=== PATIENT | female | born 1955 | race Caucasian/White ===

== ENCOUNTER 2016-04-22 17:51 | Inpatient (IN) | payer OTHER ==
[~2016-04-22] VITALS: Ht 165.1 cm; Wt 58.8 kg
[~2016-04-22 17:51] MED LIST: ATARAX,VISTARIL50 MG PO; BENTYL10 MG PO; BENZOTROPINE PO; BENZTROPINE MESY2 MG PO; CARAFATE1 GM PO; CLONAZEPAM1 MG PO; COMPAZINE10 MG PO; COREG12.5 M1 PO; COREG25 M1 PO; DICYCLOMINE HCL20 MG PO; DIFLUCAN150 MG PO; DULCOLAX5 MG PO; EFFEXOR XR75 MG PO; FLEET ENEMA-AD118 ML PR; Flora-Q,Risaquad PO; HYDROXYZINE HCL50 MG PO; LANSOPRAZOLE15 MG PO; LEVOTHROID,S0.137 MG PO; LEVOXYL112 MCG PO; LEVOXYL125 MCG PO; LEVOXYL137 MCG PO; MACROBID100 MG PO; MIRALAX17 GM PO; MORPHINE SULFAT30 M1 PO; MS CONTIN,ORAMO30 MG PO; MS CONTIN,ORAMO60 MG PO; MS Contin,Oramorph S PO; NEXIUM20 MG PO; PRILOSEC20 MG PO; PRILOSEC40 MG PO; PROCHLORPERAZIN10 MG PO; PYRIDIUM100 MG PO; STOOL SOFTENER100 M1 PO; SUBOXONE 8 MG-1 EACH SL; SUCRALFATE1 GM PO; SYNTHROID125 MCG PO; TIZANIDINE HCL4 MG PO; VIVARIN200 MG PO; ZANAFLEX2 M1 PO; ZANAFLEX4 M1 PO; ZANAFLEX4 MG PO; ZOFRAN ODT4 MG PO; ZOFRAN ODT8 MG PO
[2016-04-22 19:07] LABS: HEMATOCRIT 36.3 % (36.0-46.0); MCH 25.5 PG (29.0-34.0); MCHC 31.1 G/DL (30.0-36.0); MCV 81.8 FL (83-99); PLATELET COUNT 389 K/uL (156-360); RBC DIS.WIDTH-CV 14.6 % (11.8-14.6); RBC DIS.WIDTH-SD 43.1 % (39-53); RED BLOOD COUNT 4.44 M/uL (3.80-5.20); WHITE BLOOD COUNT 8.8 K/uL (4.1-10.2)
[2016-04-22 19:16] LABS: CHLORIDE 109 mEq/L (99-109); POTASSIUM 3.8 mEq/L (3.7-5.4); SODIUM 139 mEq/L (136-147)
[2016-04-22 19:18] LABS: GLUCOSE 128 mg/dL (70-99)
[2016-04-22 19:19] LABS: ANION GAP 9 MEQ/L (2-14)
[2016-04-22 19:20] LABS: TOTAL BILIRUBIN 0.4 mg/dL (0.0-1.0)
[2016-04-22 19:21] LABS: SERUM ETHYL ALCOHOL < 10 mg/dL
[2016-04-22 19:22] LABS: ALKALINE PHOSPHATASE 66 IU/L (3-129); GFR ESTIMATE (CALCULATED) 49 mL/min/
[2016-04-22 19:23] LABS: UREA NITROGEN (BUN) 13 mg/dL (9-23)
[2016-04-22] MEDS ORDERED: MECLIZINE HCL25 MG PO (20:38)
[2016-04-22] MEDS ORDERED: AUGMENTIN500 MG PO (20:57)
[2016-04-22] MEDS ORDERED: CENTRUM SILVER1 EAC3 PO (20:59)
[2016-04-22] MEDS ORDERED: SSD25GM TP (20:59)
[2016-04-22] MEDS ORDERED: B COMPLETE1 EACH PO (21:02)
[2016-04-22 21:23] LABS: ADD MIUA? NO; BILIRUBIN NEGATIVE; BLOOD NEGATIVE; COLOR YELLOW ((YELLOW)); GLUCOSE (STRIP) NEGATIVE; KETONES NEGATIVE; LEUKOCYTES NEGATIVE; NITRITE NEGATIVE; PROTEIN (STRIP) NEGATIVE; UROBILINOGEN 0.2 MG/DL (0.2-1.0)
[2016-04-22 21:30] LABS: AMPHETAMINE NEGATIVE (500 ng/mL); BARBITURATES NEGATIVE (200 ng/mL); BENZODIAZEPINES NEGATIVE (150 ng/mL); COCAINE NEGATIVE (150 ng/mL); INTERNAL CONTROLS VALID? YES; METHADONE NEGATIVE (200 ng/mL); METHAMPHETAMINE NEGATIVE (500 ng/mL); OPIATES (MORPHINE) PRESUMPTIVE POSITIVE (100 ng/mL); OXYCODONE NEGATIVE (100 ng/mL); PHENCYCLIDINE NEGATIVE (25 ng/mL); PROPOXYPHENE NEGATIVE (300 ng/mL); THC CANNABINOIDS NEGATIVE (50 ng/mL); TRICYCLIC ANTIDEPRESSANTS NEGATIVE (300 ng/mL)
[2016-04-22 21:31] LABS: ADD MEDTOX COMMENT Y
[2016-04-22 21:42] VITALS: BP 171/73
[2016-04-22 22:04] VITALS: BP 171/73
[2016-04-23 07:44] VITALS: BP 111/56
[2016-04-23 10:02] VITALS: BP 137/63; BP 140/66
[2016-04-23 10:03] VITALS: BP 123/59
[2016-04-23 15:32] VITALS: BP 121/58
[2016-04-23 15:34] VITALS: BP 135/64; BP 153/69
[2016-04-24 07:50] VITALS: BP 165/73
[2016-04-24 07:52] VITALS: BP 145/71; BP 160/53
[2016-04-24 15:55] VITALS: BP 153/70
[2016-04-24 15:56] VITALS: BP 156/70
[2016-04-24 15:57] VITALS: BP 131/73
[2016-04-25 07:58] VITALS: BP 174/77
[2016-04-25 07:59] VITALS: BP 163/79
[2016-04-25 08:00] VITALS: BP 161/77
[2016-04-25 15:34] VITALS: BP 154/67
[2016-04-26 07:53] VITALS: BP 142/65
[2016-04-26 16:10] VITALS: BP 148/65
[2016-04-27 07:59] VITALS: BP 145/63
[2016-04-27 15:25] VITALS: BP 133/66
[2016-04-28 08:18] VITALS: BP 127/61
[2016-04-28 15:18] VITALS: BP 135/63
[2016-04-29 09:30] VITALS: BP 150/75
[2016-04-29 15:53] VITALS: BP 133/63
[2016-04-30 07:59] VITALS: BP 154/71
[2016-04-30 15:23] VITALS: BP 145/65
[2016-05-01 08:05] VITALS: BP 111/69
[2016-05-01 09:50] VITALS: BP 104/51
[2016-05-01 15:33] VITALS: BP 99/53
[2016-05-02 07:38] VITALS: BP 115/57
[2016-05-02 16:01] VITALS: BP 103/51
[2016-05-03 07:52] VITALS: BP 149/70
[2016-05-03] MEDS ORDERED: QUETIAPINE FUMA25 MG PO (09:28)
[2016-05-03] MEDS ORDERED: QUETIAPINE FUM100 MG PO (09:28)
== END 2016-05-03 13:22 | disposition home or self-care (01) | DRG 876 ==
LOC: EME 17:51 → 1WEST 19:49 → EDOF 19:49 → 1WEST 21:38
PROVIDERS: Emergency Medicine
PROC: 0JB90ZZ Excision of Buttock Subcutaneous Tissue and Fascia, Open Approach (ICD-10-PCS; principal; 2016-04-23)
DX: F32.9 Major depressive disorder, single episode, unspecified (principal); R45.851 Suicidal ideations; F41.9 Anxiety disorder, unspecified; G89.4 Chronic pain syndrome; T21.05XA Burn of unspecified degree of buttock, initial encounter; X16.XXXA Contact with hot heating appliances, radiators and pipes, initial encounter; R42 Dizziness and giddiness; L30.1 Dyshidrosis [pompholyx]; Z98.890 Other specified postprocedural states; Z79.891 Long term (current) use of opiate analgesic
CPT/HCPCS: 70450; 80053; 81003; 84999; 85027; 90839; 97150 GO; 97166 GO; 97530 GP; 99281; 99284; G0480; Q0177

== ENCOUNTER 2017-02-01 11:28 | Emergency (ER) | payer OTHER ==
[~2017-02-01] VITALS: Ht 165.1 cm; Wt 64.4 kg
[~2017-02-01 11:28] MED LIST changes: +AUGMENTIN500 MG PO; +B COMPLETE1 EACH PO; +CENTRUM SILVER1 EAC3 PO; +MECLIZINE HCL25 MG PO; +QUETIAPINE FUM100 MG PO; +QUETIAPINE FUMA25 MG PO; +SSD25GM TP
[2017-02-01 12:54] LABS: BASOPHIL (%) 0.5 % (0-1); BASOPHIL COUNT 0.1 K/uL (0-0.1); EOSINOPHIL (%) 3.4 % (0-5); EOSINOPHIL COUNT 0.4 K/uL (0-0.3); HEMATOCRIT 43.1 % (36.0-46.0); IMMATURE GRANULOCYTE (%) 0.3 % (0.0-0.7); LYMPHOCYTE (%) 18.9 % (15-42); MCH 28.1 PG (29.0-34.0); MCHC 32.5 G/DL (30.0-36.0); MCV 86.5 FL (83-99); MONOCYTE (%) 6.8 % (3-12); MONOCYTE COUNT 0.7 K/uL (0-0.8); NEUTROPHIL (%) 70.1 % (45-76); NEUTROPHIL COUNT 7.3 K/uL (1.8-6.4); PLATELET COUNT 198 K/uL (156-360); RBC DIS.WIDTH-CV 12.3 % (11.8-14.6); RBC DIS.WIDTH-SD 39.2 % (39-53); RED BLOOD COUNT 4.98 M/uL (3.80-5.20); WHITE BLOOD COUNT 10.4 K/uL (4.1-10.2)
[2017-02-01 13:00] LABS: ALBUMIN 3.9 g/dL (3.2-4.8); CHLORIDE 104 mEq/L (99-109); POTASSIUM 4.3 mEq/L (3.7-5.4); SODIUM 140 mEq/L (136-147)
[2017-02-01 13:02] LABS: GLUCOSE 97 mg/dL (70-99); TOTAL PROTEIN 6.7 g/dL (6.4-8.3)
[2017-02-01 13:04] LABS: TOTAL BILIRUBIN 0.4 mg/dL (0.0-1.0)
[2017-02-01 13:06] LABS: ALKALINE PHOSPHATASE 63 IU/L (3-129); CREATININE 0.9 mg/dL (0.6-1.3); GFR ESTIMATE (CALCULATED) > 59 mL/min/
[2017-02-01 13:07] LABS: UREA NITROGEN (BUN) 10 mg/dL (9-23)
[2017-02-01 13:08] LABS: AST (GOT) 21 IU/L (2-34)
[2017-02-01 13:09] LABS: ALT (GPT) 19 IU/L (3-49)
[2017-02-01 16:30] VITALS: BP 141/64
== END 2017-02-01 16:43 | disposition home or self-care (01) ==
LOC: EME 11:28
PROVIDERS: Emergency Medicine
DX: G89.29 Other chronic pain (principal); R10.2 Pelvic and perineal pain; R53.1 Weakness; R20.0 Anesthesia of skin; R42 Dizziness and giddiness; R11.2 Nausea with vomiting, unspecified; Z97.8 Presence of other specified devices; I10 Essential (primary) hypertension
CPT/HCPCS: 80053; 81003; 85025; 99281; 99284; J7030

== ENCOUNTER 2017-03-28 23:25 | Observation (INO) | payer OTHER ==
[~2017-03-28] VITALS: Ht 165.1 cm; Wt 67.3 kg
[~2017-03-28 23:25] MED LIST changes: +OMEPRAZOLE40 M1 PO; -PRILOSEC40 MG PO
[2017-03-28 23:57] LABS: HEMATOCRIT 35.4 % (36.0-46.0); HEMOGLOBIN 11.7 G/DL (11.9-15.5); MCH 28.7 PG (29.0-34.0); MCHC 33.1 G/DL (30.0-36.0); MCV 86.8 FL (83-99); PLATELET COUNT 233 K/uL (156-360); RBC DIS.WIDTH-CV 12.6 % (11.8-14.6); RBC DIS.WIDTH-SD 39.8 % (39-53); RED BLOOD COUNT 4.08 M/uL (3.80-5.20); WHITE BLOOD COUNT 8.3 K/uL (4.1-10.2)
[2017-03-29 00:11] LABS: CHLORIDE 106 mEq/L (99-109); POTASSIUM 3.9 mEq/L (3.7-5.4); SODIUM 140 mEq/L (136-147)
[2017-03-29 00:13] LABS: GLUCOSE 124 mg/dL (70-99)
[2017-03-29 00:17] LABS: CREATININE 0.8 mg/dL (0.6-1.3); GFR ESTIMATE (CALCULATED) > 59 mL/min/; UREA NITROGEN (BUN) 13 mg/dL (9-23)
[2017-03-29 00:21] LABS: TROP-I INTERPRETATION NEGATIVE; TROPONIN-I < 0.01 ng/mL (0.0-0.30)
[2017-03-29 00:25] LABS: INTER. NORMALIZED RATIO 0.9
[2017-03-29 00:27] LABS: D-DIMER ELISA < 150.00 ng/mLDDU (<230); PTT 30.7 SEC (25-37)
[2017-03-29 05:11] VITALS: BP 143/104
[2017-03-29 05:24] LABS: TROP-I INTERPRETATION NEGATIVE; TROPONIN-I < 0.01 ng/mL (0.0-0.30)
[2017-03-29 07:31] VITALS: BP 179/81
[2017-03-29 08:08] LABS: THYROTROPIN (TSH) < 0.02 MIU/L (0.4-5.5)
[2017-03-29] MEDS ORDERED: MECLIZINE HCL25 MG PO (09:53)
[2017-03-29] MEDS ORDERED: MIRALAX17 GM PO (09:53)
[2017-03-29] MEDS ORDERED: BENZTROPINE MESY2 MG PO (09:55)
[2017-03-29] MEDS ORDERED: ATARAX,VISTARIL50 MG PO (09:56)
[2017-03-29] MEDS ORDERED: CAFFEINE200 M1 PO (09:56)
[2017-03-29] MEDS ORDERED: PAIN PUMP (09:57)
[2017-03-29] MEDS ORDERED: TUMS500 MG PO (09:58)
[2017-03-29 12:06] VITALS: BP 162/76
[2017-03-29 12:42] LABS: TROP-I INTERPRETATION NEGATIVE; TROPONIN-I < 0.01 ng/mL (0.0-0.30)
[2017-03-29 13:43] LABS: APPEARANCE SL.HAZY ((CLEAR)); BILIRUBIN NEGATIVE; BLOOD NEGATIVE; COLOR YELLOW ((YELLOW)); GLUCOSE (STRIP) NEGATIVE; KETONES NEGATIVE; LEUKOCYTES LARGE; NITRITE NEGATIVE; PROTEIN (STRIP) NEGATIVE; SPECIFIC GRAVITY 1.005 (1.000-1.030); UROBILINOGEN 0.2 MG/DL (0.2-1.0)
[2017-03-29 14:13] LABS: BACTERIA RARE /HPF; EPITHELIAL CELLS RARE /HPF; MUCUS NONE SEEN /LPF; WHITE BLOOD CELLS TNTC /HPF (0-5)
[2017-03-29] MEDS ORDERED: AUGMENTIN875 MG PO (14:44)
== END 2017-03-29 16:17 | disposition home or self-care (01) ==
LOC: EME → EDBD 23:25 → EDOF 03-29 03:27 → 5WEST 03-29 03:27 → ENRESERV 03-29 03:27 → EDOF 03-29 03:27 → ENRESERV 03-29 03:42 → 5WEST 03-29 04:58
PROVIDERS: Hospitalist; Nurse Practitioner Family
DX: R07.9 Chest pain, unspecified (principal); R30.0 Dysuria; R00.2 Palpitations; R06.02 Shortness of breath; I10 Essential (primary) hypertension; G89.29 Other chronic pain; R10.9 Unspecified abdominal pain; K21.9 Gastro-esophageal reflux disease without esophagitis; E03.9 Hypothyroidism, unspecified; F32.9 Major depressive disorder, single episode, unspecified; D64.9 Anemia, unspecified; Z79.891 Long term (current) use of opiate analgesic; Z90.710 Acquired absence of both cervix and uterus; Z90.49 Acquired absence of other specified parts of digestive tract; Z82.49 Family history of ischemic heart disease and other diseases of the circulatory system; Z83.3 Family history of diabetes mellitus; Z66 Do not resuscitate; Z88.6 Allergy status to analgesic agent; Z88.8 Allergy status to other drugs, medicaments and biological substances
CPT/HCPCS: 71046; 80048; 81003; 84443; 84484; 85027; 85379; 85610; 85730; 93005; 93306; 99281; 99285; G0378; J1644; J2405; J3010; J7030; S0028